=== PATIENT | male | born 1970 | race African-American/Black ===

== ENCOUNTER 2022-07-24 21:28 | Emergency (ER) | payer SELFPAY ==
[~2022-07-24] VITALS: Ht 177.8 cm; Wt 91.0 kg
[2022-07-24 21:45] VITALS: BP 105/67
== END 2022-07-24 23:11 ==
LOC: ER 21:28
DX: R55 Syncope and collapse (principal); I95.9 Hypotension, unspecified; F10.10 Alcohol abuse, uncomplicated; E16.2 Hypoglycemia, unspecified
CPT/HCPCS: 71045; 93005; 99283